=== PATIENT | female | born 1975 | race Hispanic/Latino ===

== ENCOUNTER 2016-12-12 00:54 | Emergency (ER) | payer SELFPAY ==
[~2016-12-12] VITALS: Ht 157.5 cm; Wt 80.9 kg
[2016-12-12 00:58] VITALS: BP 153/81; PULSE 80; O2SAT 100
[2016-12-12 01:19] LABS: BASOPHILS % (AUTO) 0.3 % (0-3); EOSINOPHILS % (AUTO) 3.6 % (0-5); MONOCYTES % (AUTO) 7.1 % (4-12); Mean Corpuscular Hemoglobin 29.8 pg (27.0-35.0); Mean Corpuscular Volume 85.8 fL (81-100); NEUTROPHILS % (AUTO) 49.8 % (40-74); Platelet Count 234 bil/L (150-400)
[2016-12-12 01:44] LABS: Magnesium 1.7 mg/dL (1.6-2.6)
--- NOTE | 2016-12-12 02:17 | ED.REPORT ---
HPI-Abd Pain F 40 and Over Date of Service Dec 12, 2016 ED Provider: Bill Jackson MD The pt is a 41 y/o female with a hx of 4 C-sections and cholecystectomy who presents to the ED complaining of left upper quadrant abdominal pain, onset yesterday. Her pain exacerbates with deep breathing and radiates through her chest up to her neck. She rates it 10/10 at its maximum and 7/10 in the ED currently. She denies cough, nausea, vomiting, fever, diarrhea, hematochezia, and melena. There are no other complaints at this time. Nursing Notes Stated Complaint: ABDOMINAL PAIN Chief Complaint: Female Abdominal Pain Nursing Notes Reviewed: Yes Allergies: Coded Allergies: No Known Allergies (Verified , 11/27/14) Scheduled Famotidine (Pepcid) 20 Mg Tablet 20 MG PO BID Scheduled PRN Naproxen (Naprosyn) 500 Mg Tablet 500 MG PO BID PRN PRN For Pain General Time Seen by MD: 01:40 Chief Complaint Abdominal pain Hx Obtained From: Patient Arrived By: Walk-in Sudden in Onset?: Yes Onset Occurred: Yesterday Symptom Duration: Since onset Location: : LUQ Quality: Painful Radiation: : LUQ Severity: Current: Pain level 7 out of 10 Severity: Maximum: Pain level 10 out of 10 Recent Healthcare: No recent doctor visit Past Medical History Past Medical History none reported Past Surgical History Reports: , Cholecystectomy Reports: Tubal ligation Smoking History Never Smoker Social History Alcohol Use: Denies alcohol use Drug Use: Denies drug use Ambulatory Status Independent Review of Systems Constitutional: Denies: Fever Cardiovascular: Reports: Chest pain GI: Reports: Abdominal pain, Denies: Diarrhea, Hematochezia, Melena, Nausea, Vomiting Musculoskeletal: Reports: Neck pain Complete sys rev & neg: except as marked. Physical Exam Vital Signs Vital Signs (First) Date Time Temp Pulse Resp B/P Pulse Ox O2 Delivery O2 Flow Rate FiO2 12/12/16 00:58 36.6 80 153/81 100 Room Air 12/12/16 04:29 Initial VS: Reviewed Head / Eyes: Atraumatic, Normocephalic Neck: Supple, Non-tender, Full range of motion Extremities: Vascular intact, Neuro intact, No swelling, No tenderness Skin: Warm, Dry, No cyanosis Neurologic: Alert, Oriented, Nonfocal General/Constitutional: Awake, Alert, Cooperative Respiratory / Chest: Atraumatic, Breath sounds NL, Breath sounds = bilat, No respiratory distress, No rales, No rhonchi, No wheezing Splinting and experiencing pain with breathing. Cardiovascular: Heart rate NL, Regular rhythm, Heart sounds NL, No gallop, No murmurs, No rubs No peripheral edema Abdomen: Atraumatic, Soft, No guarding, No rebound Tenderness/Guarding/Rebound: Positive: Tender LUQ... (Mild) Back: Atraumatic, Full range of motion Interpretation & Diagnostics Lab Results Interpretation Result Diagram: 12/12/16 0112 12/12/16 0112 Test 12/12/16 01:12 12/12/16 02:06 White Blood Count 9.0th/mm3 (3.8-10.1) Red Blood Count 4.23mil/mm3 (3.90-5.20) Hemoglobin 12.6g/dL (12.0-15.6) Hematocrit 36.3% (35.0-46.0) Mean Corpuscular Volume 85.8fL (81-100) Mean Corpuscular Hemoglobin 29.8pg (27.0-35.0) Mean Corpuscular Hemoglobin Concent 34.7% (32.0-37.0) Red Cell Distribution Width 13.0% (12.3-15.4) Platelet Count 234bil/L (150-400) Neutrophils (%) (Auto) 49.8% (40-74) Lymphocytes (%) (Auto) 39.0% (14-46) Monocytes (%) (Auto) 7.1% (4-12) Eosinophils (%) (Auto) 3.6% (0-5) Basophils (%) (Auto) 0.3% (0-3) Erythrocyte Sedimentation Rate 9mm/hr (0-32) Prothrombin Time 9.9sec (8.1-12.5) Prothromb Time International Ratio 0.93ratio Activated Partial Thromboplast Time 31.8sec (22.8-33.0) D-Dimer 1.02mg/L FEU (<0.50) Sodium Level 136mEq/L (134-144) Potassium Level 4.1mEq/L (3.5-5.2) Chloride Level 101mEq/L (97-108) Carbon Dioxide Level 23mmol/L (18-29) Blood Urea Nitrogen 12mg/dL (6-24) Creatinine 0.51mg/dL (0.57-1.00) Estimat Glomerular Filtration Rate 190mL/min (>59) Glucose Level 118mg/dL (60-99) Calcium Level 9.4mg/dL (8.5-10.1) Magnesium Level 1.7mg/dL (1.6-2.6) Total Bilirubin 0.2mg/dL (0.0-1.2) Aspartate Amino Transf (AST/SGOT) 25U/L (0-50) Alanine Aminotransferase (ALT/SGPT) 43U/L (0-32) Alkaline Phosphatase 71U/L (25-150) Troponin T 0.010ug/L (0.0-0.011) Pro-B-Type Natriuretic Peptide 5.69pg/mL (0-130) Total Protein 7.3g/dL (6.4-8.4) Albumin 4.4g/dL (3.4-5.0) Lipase 37U/L (13-60) Hold Bran Top Tube Received (Received) Hold Urine Received (Received) ECG Interpretation ECG Interpretation: Normal sinus rhythm. Rate 78 . Time: 01:08 Interpreted by: ED physician X-Ray Chest Interpretation Chest Xray Interpretation: No acute findings. View: Portable, AP & lat Interpretation / Wet Read by: Wet read ED physician CT Chest Interpretation No evidence of pulmonary embolism or dissection. Signed by Dr. Ang Diane 12/12/16 05:18 Study type: CT pulm angiogram Interpretation / Wet Read by: Interpret - Radiologist CT Abd / Pelvis Interpretation No acute abnormalities are identified. Signed by Dr. Ang Diane 12/12/16 05:22 Study type: Abdominal CT IV contrast Interpretation / Wet Read by: Interpret - Radiologist Re-Eval/Medical Decision Med Decision/Clinical Course 41-year-old presents with pleuritic left chest pain and upper abdominal pain. X-rays negative for effusion or other findings. D-dimer is elevated and CT scan is likewise negative. Abdomen was also scanned in the same episode, and shows no significant findings. She appears to have pleurisy without obvious cause, likely viral. Home with Naprosyn, and follow up with PCP. Pepcid as long as on Naprosyn. Source of Hx: Old records Re-Evaluation/Progress : Time of Eval: 05:59 Re-Evaluation/Progress Note: Rechecked pt. Discussed lab results, imaging results, diagnosis and plan to discharge. Pt understands and agrees with the plan. F/U instruction and RTER warning given. All questions addressed. Counseled Regarding: Diagnosis, Lab results, Need for follow-up, When/why to return to ED Discharge & Departure Primary Impression: Pleurisy Disposition: Home Discharge Condition All VS Reviewed: Yes Condition: Stable Additional Instructions: Thank you for entrusting us with your care today. Your lab and imaging results are reassuring. No dangerous cause of your pain is noted. Follow up with your primary care provider for further evaluation. Return to the emergency department in case of new or worsening symptoms. Sarah por confiarnos ludwig cuidado hoy. Shirin resultados de laboratorio y de imgenes son tranquilizadores. No se observa ninguna causa peligrosa de ludwig dolor. Cong un seguimiento con ludwig proveedor de atencin primaria para luz evaluacin posterior. Volver al servicio de urgencias en jamie de sntomas nuevos o que empeoren. Referrals: Stacy Rebollar MD (PCP) Scribe Attestation Portions of this note were transcribed by Best [place]. I,, personally performed the history, physical exam and medical decision-making;I reviewed and confirmed the accuracy of the information in the transcribed note. Signed by Kaylan Golden. 12/12/16 copies to: Stacy Rebollar MD, Christopher W MD Dec 12, 2016 02:17 Best [place] Dec 12, 2016 05:12
[2016-12-12] MEDS ORDERED: 0.9% Sodium Chloride 1,000 ML IV ONE (02:22)
[2016-12-12 03:40] LABS: D-Dimer 1.02 mg/L FEU (<0.50); INR 0.93 ratio
[2016-12-12 03:47] LABS: TROPONIN T 0.01 ug/L (0.0-0.011)
[2016-12-12 04:29] VITALS: BP 162/76; PULSE 62; RESP 19; O2SAT 94
[2016-12-12] MEDS ORDERED: FAMO20T PO (06:12)
[2016-12-12] MEDS ORDERED: NAPR500T PO (06:12)
[2016-12-12 06:30] VITALS: BP 99/62; PULSE 71; RESP 17; O2SAT 97
--- NOTE | 2016-12-12 09:02 | DRSVH ---
PROCEDURE: X-RAY CHEST, TWO VIEWS ([id number]) INDICATIONS: pleuritic chest pain for 2 days, lower left hand side TECHNIQUE: 2 views of the chest were acquired. COMPARISON: [facility], CR, XR CHEST 2VW, 11/27/2014, 23:09. FINDINGS: Surgical changes and devices: Cholecystectomy clips. Lungs and pleura: No pleural effusions or pneumothorax. Lungs are clear. Mediastinum: Mediastinal contours are normal. Heart size is normal. Bones and chest wall: No suspicious bony abnormalities. Soft tissues appear unremarkable. IMPRESSION: No acute cardiopulmonary disease. Dictated by: Jose Antonio Riojas [facility] Interpreted: Benson Stone MD on 12/12/2016 at 9:01 Transcribed by: GAYATRI on 12/12/2016 at 9:02 Approved by: Benson Stone M.D. on 12/12/2016 at 11:41
--- NOTE | 2016-12-12 10:45 | DRSVH ---
PROCEDURE: CT ANGIO CHEST PULMONARY EMBOLISM ([id number]) INDICATIONS: 41 year-old female with pleuritic chest pain and elevated d-dimer level. TECHNIQUE: After the administration of intravenous contrast, 2 mm thick sections acquired from the pulmonary api enriqueta to the posterior costophrenic angles. 3-dimensional maximum intensity projection (MIP) coronal a nd sagittal reformats were then acquired through the thorax. For radiation dose reduction, the follo wing was used: automated exposure control, adjustment of mA and/or kV according to patient size. COMPARISON: [facility], CR, XR CHEST 2VW, 12/12/2016, 2:37. FINDINGS: Preliminary interpretation rendered by [facility]. Image quality: Excellent. Pulmonary arteries: Pulmonary arteries are normal in size, and demonstrate no intraluminal filling d efects to suggest central pulmonary embolism. Lungs and pleura: Lungs are clear, except for minimal dependent left lung base atelectasis. No pleu ral effusions or pneumothorax. Central and peripheral airways are patent. Mediastinum: Heart size is normal, without pericardial effusion. No mediastinal or hilar adenopathy . Thoracic aorta is normal in caliber and enhancement. A bovine aortic arch is present, with common origin to the brachiocephalic and left common carotid arteries. Esophagus is normal in caliber, with out hiatal hernia. Bones and chest wall: No suspicious bony lesions. Ribs and thoracic spine appear intact throughout. Thyroid gland is normal in size. No axillary or supraclavicular adenopathy. Abdomen: Visualized upper abdominal solid organs appear normal in the early arterial phase of enhanc ement, status post cholecystectomy. IMPRESSION: No evidence for central pulmonary embolism. No acute pulmonary disease. No significant [facility]. Dictated by: Elgin Burks M.D. on 12/12/2016 at 10:38 Approved by: Elgin Burks M.D. on 12/12/2016 at 10:44
--- NOTE | 2016-12-12 10:53 | DRSVH ---
PROCEDURE: CT ABDOMEN AND PELVIS WITH CONTRAST ([id number]) INDICATIONS: 41 year-old female with chest and abdominal pain. TECHNIQUE: After the administration of intravenous contrast, 5 mm thick sections acquired from the diaphragm to the symphysis. 5 mm coronal and sagittal reformats were acquired. For radiation dose reduction, the following was used: automated exposure control, adjustment of mA and/or kV according to patient siz e. COMPARISON: [facility], CT, ABD/PELVIS W/CON (PN), 12/04/2012, 0:49. FINDINGS: Preliminary interpretation rendered by [facility]. Image quality: Excellent. ABDOMEN: Lung bases: Lung bases are clear. Heart size is normal. Solid organs: Liver and spleen are normal in size and enhancement. Gallbladder is surgically absent . Biliary system is non dilated. Pancreas enhances normally. No adrenal nodules. Kidneys demonstr ate normal size and enhancement, without hydronephrosis. Peritoneum and bowel: Bowel loops demonstrate normal wall thickness and caliber. The appendix appea rs normal. No free fluid or air. Nodes and vessels: No retroperitoneal or mesenteric adenopathy by size criteria. Aorta and inferior vena cava are normal in size. Miscellaneous: No ventral hernias. PELVIS: Genitourinary: Bladder wall thickness is normal. Uterus and ovaries are normal in size. On axial im age 85, a 1.7 cm left Bartholin's gland cyst is now apparent in the perineum. Miscellaneous: No inguinal hernias or adenopathy. Bones: No suspicious bony lesions. No vertebral body compression fractures. IMPRESSION: 1. No acute findings to explain abdominal pain. 2. Interval development of a left perineal Bartholin's gland cyst. No significant discrepancy with preliminary [facility] report. Dictated by: Elgin Burks M.D. on 12/12/2016 at 10:44 Approved by: Elgin Burks M.D. on 12/12/2016 at 10:52
== END 2016-12-12 06:20 | disposition home or self-care (01) ==
LOC: SED 00:54
DX: R09.1 Pleurisy (principal); R10.12 Left upper quadrant pain; Z87.19 Personal history of other diseases of the digestive system; Z79.1 Long term (current) use of non-steroidal anti-inflammatories (NSAID)
CPT/HCPCS: 36415; 71020; 71275; 74177; 80053; 81025; 83690; 83735; 83880; 84484; 85025; 85378; 85610; 85651; 85730; 93005; 96361; 96374; 99285; J2060; J7030; Q9967